=== PATIENT | male | born 1980 | race Two or more races ===

== ENCOUNTER 2019-09-23 01:08 | Inpatient (IN) | payer MEDICAID ==
[~2019-09-23] VITALS: Ht 180.3 cm; Wt 87.9 kg
[2019-09-23] MEDS ORDERED: VIKTARVY PO (01:29)
[2019-09-23] MEDS ORDERED: [UNRECOGNIZED DRUG - OTHER] PO (01:29)
[2019-09-23] MEDS ORDERED: VANCOMYCIN PER PHARMACY MC ONE (01:30)
[2019-09-23] MEDS ORDERED: PIPERACILLIN/TAZO/PMX 3.375GM 50 ML IVPB ONE (01:30)
--- NOTE | 2019-09-23 01:51 | NUR ---
BREAK RN: PT IN HOSPITAL GOWN. IV STARTED. PT ON VITALS MONITORS. FRIEND AT BEDSIDE. CALL LIGHT WITHIN REACH. WILL CONTINUE TO MONITOR.
[2019-09-23] MEDS ORDERED: PIPERACILLIN/TAZO/PMX 3.375GM 50 ML ONE (01:55)
[2019-09-23] MEDS ORDERED: VANCOMYCIN 1,800 MG in SODIUM CHLORIDE 0.9% 250 ML IV ONE (02:00)
[2019-09-23 02:15] LABS: BASOPHILS % (AUTO) 1 % (0-1); EOSINOPHILS # (AUTO) 0.53 x10^3/uL (0-0.4); EOSINOPHILS % (AUTO) 4 % (1-7); LYMPHOCYTES # (AUTO) 1.98 x10^3/uL (1-3.4); LYMPHOCYTES % (AUTO) 16 % (22-44); MD NO; MEAN CORPUSCULAR HEMOGLOBIN 30.9 pg (27.5-34.5); MEAN CORPUSCULAR HGB CONC 33.2 g/dL (33.2-36.2); MEAN CORPUSCULAR VOLUME 93.1 fL (81-97); MEAN PLATELET VOLUME 7.4 fL (7.4-10.4); MONOCYTES # (AUTO) 0.79 x10^3/uL (0.2-0.8); MONOCYTES % (AUTO) 6 % (2-9); NEUTROPHILS # (AUTO) 9.33 x10^3/uL (1.8-6.8); NEUTROPHILS % (AUTO) 73 % (42-75); PLATELET COUNT 507 x10^3/uL (130-400); RED CELL DISTRIBUTION WIDTH 13.2 % (9.4-14.8)
[2019-09-23 02:29] LABS: ALANINE AMINOTRANSFERASE 26 U/L (12-78); ALBUMIN 2.9 g/dL (3.4-5.0); ANION GAP 6 mmol/L (5-15); CALCIUM 8.8 mg/dL (8.5-10.1); CHLORIDE 103 mmol/L (98-107)
[2019-09-23 02:32] LABS: ALKALINE PHOSPHATASE 156 U/L (45-117); BILIRUBIN,TOTAL 0.3 mg/dL (0.2-1.0); CREATININE 0.74 mg/dL (0.7-1.3); TOTAL PROTEIN 8.2 g/dL (6.4-8.2)
--- NOTE | 2019-09-23 02:45 | NUR ---
THE PT DENIES NEEDS. CALL LIGHT IN REACH.
--- NOTE | 2019-09-23 02:45 | NUR ---
ROUNDS COMPLETED. VANC INFUSING. BLD CX WERE DRAWN BEFORE IV ATBS STARTED.
[2019-09-23] MEDS ORDERED: OMNIPAQUE 350 MG/ML, 100ML BOTTLE ONE (03:01)
--- NOTE | 2019-09-23 03:03 | NUR ---
BACK FROM CT.
--- NOTE | 2019-09-23 03:48 | NUR ---
tP: CALLED [facility] [employer] [facility], ARELY DECLINED TRANSFER AND CALLED Sarah @ [facility] WHOM DECLINED PT
[2019-09-23 04:21] VITALS: BP 117/77
[2019-09-23] MEDS ORDERED: ONDANSETRON 2MG/ML, 2ML IVPush PRN (04:30)
[2019-09-23] MEDS ORDERED: ACETAMINOPHEN 325 MG TABLET PO PRN (04:30)
[2019-09-23] MEDS ORDERED: morphine SULFATE 10 MG/ML, 1ML IVPush PRN (04:30)
[2019-09-23] MEDS ORDERED: VANCOMYCIN PER PHARMACY MC PRN (04:30)
[2019-09-23] MEDS ORDERED: PHARMACOKINETIC MONITORING MC PRN (05:00)
[2019-09-23 07:13] VITALS: BP 117/74
[2019-09-23] MEDS: PIPERACILLIN/TAZO/PMX 3.375GM 50 ML IV SCH ×3 (09:21→22:41)
[2019-09-23] MEDS: BICTEGRAV/EMTRICIT/TENOFOV ALA TAB PO SCH (09:21)
[2019-09-23 13:06] VITALS: BP 121/77
[2019-09-23] MEDS: VANCOMYCIN 1,500 MG in SODIUM CHLORIDE 0.9% 250 ML IV SCH (13:50)
[2019-09-23] MEDS: HYDROcodone/APAP 5/325 TABLET PO PRN (13:51)
[2019-09-23 19:12] VITALS: BP 114/74
[2019-09-24 02:00] VITALS: BP 130/83
[2019-09-24] MEDS: VANCOMYCIN 1,500 MG in SODIUM CHLORIDE 0.9% 250 ML IV SCH ×2 (02:16→14:58)
[2019-09-24] MEDS: PIPERACILLIN/TAZO/PMX 3.375GM 50 ML IV SCH ×4 (04:05→22:42)
[2019-09-24 05:31] LABS: MEAN CORPUSCULAR HEMOGLOBIN 30.3 pg (27.5-34.5); MEAN CORPUSCULAR HGB CONC 32.5 g/dL (33.2-36.2); MEAN PLATELET VOLUME 7.1 fL (7.4-10.4); PLATELET COUNT 492 x10^3/uL (130-400); RED BLOOD COUNT 4.83 x10^6/uL (4.38-5.82); RED CELL DISTRIBUTION WIDTH 13.1 % (9.4-14.8)
[2019-09-24 05:40] LABS: ANION GAP 6 mmol/L (5-15); CALCIUM 8.9 mg/dL (8.5-10.1); CHLORIDE 98 mmol/L (98-107)
[2019-09-24 05:41] LABS: CREATININE 0.88 mg/dL (0.7-1.3)
[2019-09-24 06:17] LABS: BASOPHILS # (AUTO) 0.04 x10^3/uL (0-0.1); BASOPHILS % (AUTO) 0 % (0-1); EOSINOPHILS # (AUTO) 0.43 x10^3/uL (0-0.4); EOSINOPHILS % (AUTO) 3 % (1-7); LYMPHOCYTES # (AUTO) 1.96 x10^3/uL (1-3.4); LYMPHOCYTES % (AUTO) 15 % (22-44); MD SCAN; MONOCYTES # (AUTO) 0.92 x10^3/uL (0.2-0.8); MONOCYTES % (AUTO) 7 % (2-9); NEUTROPHILS % (AUTO) 75 % (42-75)
[2019-09-24 07:46] VITALS: BP 122/79
[2019-09-24] MEDS: BICTEGRAV/EMTRICIT/TENOFOV ALA TAB PO SCH (08:47)
[2019-09-24] MEDS: POTASSIUM CHLORIDE 20 MEQ TAB.ER.PRT PO SCH ×2 (11:16→17:17)
[2019-09-24 13:14] VITALS: BP 115/70
[2019-09-24 18:45] VITALS: BP 117/80
[2019-09-24] MEDS ORDERED: GADOTERATE 10 MMOL/20 ML SYR ONE (19:11)
[2019-09-24] MEDS: HYDROcodone/APAP 5/325 TABLET PO PRN (22:48)
[2019-09-24] MEDS: ENOXAPARIN 40 MG/0.4 ML SQ SCH (23:34)
[2019-09-25 01:13] VITALS: BP 104/69
[2019-09-25 02:41] LABS: BASOPHILS # (AUTO) 0.08 x10^3/uL (0-0.1); BASOPHILS % (AUTO) 1 % (0-1); EOSINOPHILS # (AUTO) 0.55 x10^3/uL (0-0.4); EOSINOPHILS % (AUTO) 5 % (1-7); LYMPHOCYTES # (AUTO) 1.98 x10^3/uL (1-3.4); LYMPHOCYTES % (AUTO) 17 % (22-44); MD NO; MEAN CORPUSCULAR HEMOGLOBIN 31.2 pg (27.5-34.5); MEAN CORPUSCULAR HGB CONC 33.3 g/dL (33.2-36.2); MEAN CORPUSCULAR VOLUME 93.7 fL (81-97); MEAN PLATELET VOLUME 7.2 fL (7.4-10.4); MONOCYTES % (AUTO) 9 % (2-9); NEUTROPHILS # (AUTO) 7.93 x10^3/uL (1.8-6.8); NEUTROPHILS % (AUTO) 69 % (42-75); PLATELET COUNT 506 x10^3/uL (130-400); RED BLOOD COUNT 4.74 x10^6/uL (4.38-5.82); RED CELL DISTRIBUTION WIDTH 12.9 % (9.4-14.8)
[2019-09-25 02:45] LABS: ANION GAP 5 mmol/L (5-15); CALCIUM 8.9 mg/dL (8.5-10.1); CHLORIDE 100 mmol/L (98-107)
[2019-09-25] MEDS: VANCOMYCIN 1,500 MG in SODIUM CHLORIDE 0.9% 250 ML IV SCH (03:26)
[2019-09-25] MEDS: PIPERACILLIN/TAZO/PMX 3.375GM 50 ML IV SCH (06:15)
[2019-09-25 07:23] VITALS: BP 93/55
[2019-09-25] MEDS: BICTEGRAV/EMTRICIT/TENOFOV ALA TAB PO SCH (08:57)
[2019-09-25 09:21] LABS: INTERNATIONAL NORMALIZED RATIO 1.02 (0.93-1.1); PROTHROMBIN TIME 10.7 Seconds (9.6-11.5)
[2019-09-25] MEDS ORDERED: CEFAZOLIN 2,000 MG in SODIUM CHLORIDE 0.9% 50 ML IV SCH (10:00)
[2019-09-25] MEDS: CEFAZOLIN PMX 2GM/50ML 50 ML IVPB SCH ×2 (10:53→18:12)
[2019-09-25 11:02] LABS: AMPHETAMINE SCREEN, URINE Positive (Negative); BARBITURATE SCREEN, URINE Negative (Negative); BENZODIAZEPINE SCREEN, URINE Negative (Negative); CANNABINOID SCREEN, URINE Negative (Negative); COCAINE SCREEN, URINE Negative (Negative); OPIATE SCREEN, URINE Positive (Negative)
[2019-09-25 11:03] LABS: METHADONE SCREEN, URINE Negative (Negative)
[2019-09-25 12:30] VITALS: BP 125/86
[2019-09-25 19:22] VITALS: BP 120/79
[2019-09-25] MEDS: ENOXAPARIN 40 MG/0.4 ML SQ SCH (22:30)
[2019-09-26 01:38] VITALS: BP 111/77
[2019-09-26] MEDS: CEFAZOLIN PMX 2GM/50ML 50 ML IVPB SCH ×3 (01:50→18:24)
[2019-09-26 05:20] LABS: BASOPHILS # (AUTO) 0.07 x10^3/uL (0-0.1); BASOPHILS % (AUTO) 1 % (0-1); EOSINOPHILS # (AUTO) 0.56 x10^3/uL (0-0.4); EOSINOPHILS % (AUTO) 5 % (1-7); LYMPHOCYTES # (AUTO) 1.79 x10^3/uL (1-3.4); LYMPHOCYTES % (AUTO) 17 % (22-44); MD NO; MEAN CORPUSCULAR HEMOGLOBIN 30.6 pg (27.5-34.5); MEAN CORPUSCULAR HGB CONC 32.8 g/dL (33.2-36.2); MEAN CORPUSCULAR VOLUME 93.2 fL (81-97); MEAN PLATELET VOLUME 7.2 fL (7.4-10.4); MONOCYTES # (AUTO) 0.94 x10^3/uL (0.2-0.8); MONOCYTES % (AUTO) 9 % (2-9); NEUTROPHILS # (AUTO) 7.22 x10^3/uL (1.8-6.8); NEUTROPHILS % (AUTO) 68 % (42-75); PLATELET COUNT 518 x10^3/uL (130-400); RED BLOOD COUNT 4.57 x10^6/uL (4.38-5.82); RED CELL DISTRIBUTION WIDTH 13.1 % (9.4-14.8)
[2019-09-26 05:36] LABS: ALBUMIN 2.6 g/dL (3.4-5.0); ANION GAP 4 mmol/L (5-15); CALCIUM 8.9 mg/dL (8.5-10.1); CHLORIDE 101 mmol/L (98-107); CREATININE 0.75 mg/dL (0.7-1.3)
[2019-09-26 07:17] VITALS: BP 143/83
[2019-09-26] MEDS: BICTEGRAV/EMTRICIT/TENOFOV ALA TAB PO SCH (09:19)
[2019-09-26 13:13] VITALS: BP 111/73
[2019-09-26 19:10] VITALS: BP 123/80
[2019-09-26] MEDS: ENOXAPARIN 40 MG/0.4 ML SQ SCH (22:30)
[2019-09-27 00:48] VITALS: BP 124/78
[2019-09-27] MEDS: CEFAZOLIN PMX 2GM/50ML 50 ML IVPB SCH ×3 (01:35→18:33)
[2019-09-27 09:50] VITALS: BP 109/76
[2019-09-27] MEDS: BICTEGRAV/EMTRICIT/TENOFOV ALA TAB PO SCH (11:24)
[2019-09-27 17:04] VITALS: BP 116/76
[2019-09-27 19:07] VITALS: BP 116/78
[2019-09-27] MEDS: ENOXAPARIN 40 MG/0.4 ML SQ SCH (22:11)
[2019-09-28 01:05] VITALS: BP 126/76
[2019-09-28] MEDS: CEFAZOLIN PMX 2GM/50ML 50 ML IVPB SCH ×3 (01:32→18:11)
[2019-09-28 06:37] VITALS: BP 117/72
[2019-09-28] MEDS: BICTEGRAV/EMTRICIT/TENOFOV ALA TAB PO SCH (08:59)
[2019-09-28 12:35] VITALS: BP 121/78
[2019-09-28 19:03] VITALS: BP 91/59
[2019-09-28 19:16] VITALS: BP 117/74
[2019-09-28] MEDS: ENOXAPARIN 40 MG/0.4 ML SQ SCH (22:30)
[2019-09-29 00:56] VITALS: BP 107/72
[2019-09-29] MEDS: CEFAZOLIN PMX 2GM/50ML 50 ML IVPB SCH ×3 (02:22→17:39)
[2019-09-29 05:18] LABS: BASOPHILS # (AUTO) 0.05 x10^3/uL (0-0.1); BASOPHILS % (AUTO) 1 % (0-1); EOSINOPHILS # (AUTO) 0.46 x10^3/uL (0-0.4); EOSINOPHILS % (AUTO) 5 % (1-7); LYMPHOCYTES # (AUTO) 2.02 x10^3/uL (1-3.4); LYMPHOCYTES % (AUTO) 20 % (22-44); MD NO; MEAN CORPUSCULAR HEMOGLOBIN 30.4 pg (27.5-34.5); MEAN CORPUSCULAR HGB CONC 32.2 g/dL (33.2-36.2); MEAN CORPUSCULAR VOLUME 94.4 fL (81-97); MEAN PLATELET VOLUME 7.4 fL (7.4-10.4); MONOCYTES # (AUTO) 0.83 x10^3/uL (0.2-0.8); MONOCYTES % (AUTO) 8 % (2-9); NEUTROPHILS # (AUTO) 6.65 x10^3/uL (1.8-6.8); NEUTROPHILS % (AUTO) 66 % (42-75); PLATELET COUNT 567 x10^3/uL (130-400); RED BLOOD COUNT 4.77 x10^6/uL (4.38-5.82); RED CELL DISTRIBUTION WIDTH 13.1 % (9.4-14.8)
[2019-09-29 05:20] LABS: HCT (SEDRATE) 44.4 % (39.2-51.8)
[2019-09-29 05:27] LABS: ALBUMIN 2.9 g/dL (3.4-5.0); ANION GAP 3 mmol/L (5-15); CALCIUM 9.1 mg/dL (8.5-10.1); CHLORIDE 103 mmol/L (98-107)
[2019-09-29 05:35] LABS: ALANINE AMINOTRANSFERASE 29 U/L (12-78); ALKALINE PHOSPHATASE 133 U/L (45-117); BILIRUBIN,TOTAL 0.2 mg/dL (0.2-1.0); CREATININE 0.95 mg/dL (0.7-1.3); TOTAL PROTEIN 7.9 g/dL (6.4-8.2)
[2019-09-29 08:20] VITALS: BP 113/72
[2019-09-29] MEDS: BICTEGRAV/EMTRICIT/TENOFOV ALA TAB PO SCH (09:53)
[2019-09-29 12:50] VITALS: BP 121/74
[2019-09-29 19:14] VITALS: BP 129/90
[2019-09-29] MEDS: ENOXAPARIN 40 MG/0.4 ML SQ SCH (22:30)
[2019-09-30 01:38] VITALS: BP 143/89
[2019-09-30] MEDS: CEFAZOLIN PMX 2GM/50ML 50 ML IVPB SCH ×3 (01:51→18:07)
[2019-09-30 07:34] VITALS: BP 121/79
[2019-09-30] MEDS: BICTEGRAV/EMTRICIT/TENOFOV ALA TAB PO SCH (08:10)
[2019-09-30 12:35] VITALS: BP 123/82
[2019-09-30 19:46] VITALS: BP 110/73
[2019-09-30] MEDS: ENOXAPARIN 40 MG/0.4 ML SQ SCH (22:30)
[2019-10-01] MEDS: CEFAZOLIN PMX 2GM/50ML 50 ML IVPB SCH ×2 (01:53→10:33)
[2019-10-01 01:54] VITALS: BP 107/70
[2019-10-01 07:08] VITALS: BP 102/66
[2019-10-01] MEDS: BICTEGRAV/EMTRICIT/TENOFOV ALA TAB PO SCH (08:50)
[2019-10-01] MEDS ORDERED: CEPH-368 PO (12:32)
== END 2019-10-01 15:06 | disposition home or self-care (01) | DRG 872 ==
LOC: ED 02:31 → 3N 04:11 → DCLOUNGE 10-01 14:45
PROVIDERS: ADMIT Internal Medicine; ATTEND Hospitalist
DX: A41.9 Sepsis, unspecified organism (principal); E87.1 Hypo-osmolality and hyponatremia; L02.11 Cutaneous abscess of neck; L03.221 Cellulitis of neck; M60.009 Infective myositis, unspecified site; D69.6 Thrombocytopenia, unspecified; E87.6 Hypokalemia; E88.09 Other disorders of plasma-protein metabolism, not elsewhere classified; F15.90 Other stimulant use, unspecified, uncomplicated; F17.210 Nicotine dependence, cigarettes, uncomplicated; Z21 Asymptomatic human immunodeficiency virus [HIV] infection status
CPT/HCPCS: 36415; 70491; 70543; 71045; 80048; 80053; 80074; 80202; 80307; 82040; 83605; 83735; 84145; 85025; 85610; 85651; 86140; 86361; 87040; 87070; 87077; 87147; 87186; 87205; 87536; 93005; 99285; G0378; J0690; J1650; J2543; J3370; Q9967; A9575; J7050

== ENCOUNTER 2020-01-23 22:28 | Emergency (ER) | payer MEDICAID ==
[~2020-01-23] VITALS: Ht 180.3 cm; Wt 89.0 kg
[~2020-01-23 22:28] MED LIST: CEPH-368 PO; VIKTARVY PO; [UNRECOGNIZED DRUG - OTHER] PO
[2020-01-23 23:32] VITALS: BP 142/97
== END 2020-01-23 23:35 | disposition home or self-care (01) ==
LOC: ED 23:23
DX: L02.811 Cutaneous abscess of head [any part, except face] (principal); Z71.7 Human immunodeficiency virus [HIV] counseling
CPT/HCPCS: 99283